=== PATIENT | female | born 1945 | race Caucasian/White ===

== ENCOUNTER 2017-09-07 08:18 | Outpatient (CLI) | payer MEDICARE, BC ==
--- NOTE | 2017-09-07 10:39 | CT ---
NONCONTRAST CT OF LUMBAR SPINE 09/07/2017 HISTORY: Low back pain with pain radiating down left leg. History of fall 2 weeks ago. History of low back surgery. TECHNIQUE: Contiguous axial CT images are obtained through the lumbar spine from the T12-L1 level to the upper sacrum. Sagittal and coronal reformatted images are provided. FINDINGS: There are laminectomy defects seen from the level of the L2 vertebral body to the L5 vertebral body. Multilevel degenerative changes are seen of the intervertebral disk spaces at all levels with asso ciated vacuum phenomenon in the intervertebral disks. No fracture or subluxation is seen. There is mild right convex scoliosis of the lumbar spine. L1-2 level: There is a broad-based disk osteophyte complex present. The uncinate process appears t o be on the right. There is only minimal narrowing of the central spinal canal. Left neural forame n is patent, and there is very mild right-sided neural foraminal narrowing. L2-3 level: There is a broad-based disk osteophyte complex with facet hypertrophic changes. Findin gs result in moderate left and mild right-sided neural foraminal narrowing. Laminectomy defect note d posteriorly. L3-4 level: There is a broad-based disk osteophyte complex with prominent facet hypertrophic change s. There is a laminectomy defect posteriorly, but there is bony overgrowth and there is resultant m ild to moderate narrowing of the central spinal canal. There is moderate to severe left-sided neura l foraminal narrowing. The right neural foramen appears patent. L4-5 level: There is a broad-based disk osteophyte complex. This results in mild left and severe r ight-sided neural foraminal narrowing. Prominence based on bony encroachment. There is mild efface ment of the lateral aspect of the thecal sac largely due to the prominent facet hypertrophic changes . Laminectomy defect seen posteriorly. L5-S1 level: There is a broad-based disk osteophyte complex present. There is mild bilateral neura l foraminal narrowing due to the posterior osteophyte formation and facet degenerative changes with moderate encroachment on each exiting nerve root due to lateral osteophytes. Central spinal canal a ppears patent. Extra calcification seen in the abdominal aorta and iliac arteries. IMPRESSION: 1. Laminectomy defects extending from L2 to L5. Multilevel degenerative changes are seen with varyi ng degrees of neural foraminal narrowing primarily related to the bony encroachment at multiple leve ls. 2. Right convex scoliosis of the lumbar spine. POS: [facility]
--- NOTE | 2017-09-07 11:53 | MRI ---
MRI OF THE LUMBAR SPINE WITH AND WITHOUT IV CONTRAST: Indication: History of fall two weeks ago with pain radiating down left leg and low back pain. Patie nt has a history of lumbar back surgery. FINDINGS: There is post-surgical change most consistent with laminectomies at L2-3, L3-4, L4-5 and L5-S1. Ther e is advanced multilevel Modic endplate degenerative changes seen involving the lumbar spine most pr onounced at L2-3 through L5-S1. The conus is seen to terminate at L1. Visualized retroperitoneum dem onstrate bilateral extrarenal pelves. No enlarged lymph nodes or free fluid is evident. There is a bony hemangioma within the left aspect of L2. At the L5-S1 level, there is a broad based disc bulge with a superimposed central disc protrusion. T he broad based disc bulge and protrusion cause mild narrowing of the subarticular later recesses sonia aterally without definite impingement of the traversing S1 nerve roots. The loss of disc space heigh t in addition to the facet hypertrophy does induce mild bilateral neural foraminal narrowing. At L4-5, there is an asymmetric to the right disc osteophyte complex. The degenerative changes of th e disc in addition to the facet hypertrophy induce severe right and mild left neural foraminal narro wing. At L3-4, There is an asymmetric to the left disc osteophyte complex. The disc osteophyte complex wit h facet hypertrophy at this level induces severe left and mild to moderate right neural foraminal na rrowing. At L2-3, there is a broad based disc osteophyte complex and facet hypertrophy inducing moderate to s evere left and mild right neural foraminal narrowing. At L1-2, there is a broad based disc osteophyte complex with facet hypertrophy inducing moderate sonia ateral neural foraminal narrowing. At T12-L1, there is a broad based bulge without appreciable central canal or neural foraminal narrow ing. There is no abnormal enhancement demonstrated. IMPRESSION: Multilevel prominent neural foraminal narrowing involving the lumbar spine. Mild bilateral lateral recess narrowing at L5-S1 due to broad based bulge and central protrusion wit h facet hypertrophy. There is no definite impingement of the traversing S1 nerve roots. POS: [facility]
[2017-09-07] MEDS ORDERED: Gadobenate Dimeglumine 529 MG/1 ML (20ML VIAL) ONE (16:06)
== END 2017-09-07 08:19 | disposition home or self-care (01) ==
LOC: TBSIIMAG 08:18
PROVIDERS: ATTEND Surgery
DX: M47.26 Other spondylosis with radiculopathy, lumbar region (principal); M41.9 Scoliosis, unspecified; M48.07 Spinal stenosis, lumbosacral region
CPT/HCPCS: 72131; 72158; A9579

== ENCOUNTER 2018-03-27 09:38 | Outpatient (CLI) | payer MEDICARE, BC ==
[2018-03-27 11:03] LABS: Hemoglobin 14.9 g/dL (12.0-16.0); Mean Corpuscular HGB CONC 33.1 g/dL (32.0-36.0); Mean Corpuscular Hemoglobin 32.1 pg (27.0-31.0); Mean Platelet Volume 6.9 fL (7.4-10.4); Platelet Count 270 thou/uL (130-400); RBC Distribution Width 11.8 % (11.5-14.5); Red Blood Cell (RBC) Count 4.64 mill/uL (4.20-5.40); White Blood Cell (WBC) Count 5.4 thou/uL (4.8-10.8)
[2018-03-27 11:15] LABS: PTT 28.9 SEC (22.9-36.1); Prothrombin Time 13.3 SEC (12.0-14.7)
[2018-03-27 11:22] LABS: Anion Gap 11 mmol/L (10-20); BUN (Urea Nitrogen) 10 mg/dL (9.8-20.1); Calc. Creatinine Clearance 0 mL/min (70-130); Calcium 9.9 mg/dL (7.8-10.44); Carbon Dioxide 29 mmol/L (23-31); Chloride 103 mmol/L (98-107); Estimated GFR-MDRD 72; Glucose 85 mg/dL (80-115); Potassium 3.8 mmol/L (3.5-5.1); Sodium 139 mmol/L (136-145)
--- NOTE | 2018-03-27 11:40 | EKG ---
Test Reason : Blood Pressure : / mmHG Vent. Rate : 060 BPM Atrial Rate : 060 BPM P-R Int : 136 ms QRS Dur : 100 ms QT Int : 432 ms P-R-T Axes : 053 010 032 degrees QTc Int : 432 ms Normal sinus rhythm Incomplete right bundle branch block Poor anterior R wave progression When compared with ECG of 17-OCT-2016 13:44, No significant change was found Confirmed by DR. Crys MCCOY ([id number]) on 03/27/2018 11:40:16 AM Referred By: SABRINA Confirmed By:DR. Crys MCCOY
== END 2018-03-27 09:39 | disposition home or self-care (01) ==
LOC: LABBT 09:38
PROVIDERS: ATTEND Surgery
DX: Z01.818 Encounter for other preprocedural examination (principal); M51.16 Intervertebral disc disorders with radiculopathy, lumbar region; M48.061 Spinal stenosis, lumbar region without neurogenic claudication
CPT/HCPCS: 80048; 85027; 85610; 85730; 93005; 93010

== ENCOUNTER 2018-04-04 09:33 | Day surgery (SDC) | payer MEDICARE, BC ==
[2018-04-04] MEDS ORDERED: CEFAZOLIN/Water 2 GM/20 ML SYRINGE ONE (11:38)
[2018-04-04] MEDS ORDERED: Bacitracin Zinc Ointment 30 gm TUBE ONE (13:45)
[2018-04-04] MEDS ORDERED: Sodium Chloride 0.9% 10 ML ONE (13:45)
[2018-04-04] MEDS ORDERED: Thrombin 5000 UNITS/5 ML VIAL ONE (13:45)
[2018-04-04] MEDS ORDERED: Ondansetron HCl/PF 4 MG/2 ML Vial ONE ×2 (13:46→14:23)
[2018-04-04] MEDS ORDERED: Fentanyl 100 MCG/2 ML VIAL ONE ×2 (13:46→17:07)
[2018-04-04] MEDS ORDERED: PROPOFOL 200 MG/20 ML VIAL ONE (14:23)
[2018-04-04] MEDS ORDERED: Lidocaine 1% PF 5 ML VIAL ONE (14:23)
[2018-04-04] MEDS ORDERED: PHENYLEPHRINE-NS 100 MCG/ML 10 ML SYRINGE ONE (14:23)
[2018-04-04] MEDS ORDERED: ePHEDrine/0.9% NaCl/PF SYRINGE 50 mg/10 ml ONE (14:23)
[2018-04-04] MEDS ORDERED: Glycopyrrolate 0.2 MG/ML 5 ML SYRINGE ONE (14:23)
[2018-04-04] MEDS ORDERED: Dexamethasone 20 MG/5 ML VIAL ONE (14:23)
[2018-04-04] MEDS ORDERED: Meperidine HCl/PF 25 MG/ML VIAL SLOW IVP PRN (15:51)
[2018-04-04] MEDS ORDERED: Promethazine HCl 25 MG/ML VIAL SLOW IVP PRN (15:51)
[2018-04-04] MEDS ORDERED: Ondansetron HCl/PF 4 MG/2 ML Vial IVP PRN (15:51)
[2018-04-04] MEDS ORDERED: Promethazine HCl 25 MG/ML VIAL IM PRN ×2 (15:51→16:44)
[2018-04-04] MEDS ORDERED: Milk Of Magnesia 30 ML UDCUP PO PRN (16:44)
[2018-04-04] MEDS ORDERED: Morphine 4 MG/ML VIAL SLOW IVP PRN (16:44)
[2018-04-04] MEDS ORDERED: Bisacodyl 10 MG SUPP PR PRN (16:44)
[2018-04-04] MEDS ORDERED: Acetaminophen 325 MG TAB PO PRN (16:44)
[2018-04-04] MEDS ORDERED: Fleet Enema 133 ML BOT PR PRN (16:44)
[2018-04-04] MEDS ORDERED: Mag-Al 1200 mg/1200 mg/30 ML UDCUP PO PRN (16:44)
[2018-04-04] MEDS: Acetaminophen/Codeine 30-300mg Tablet PO PRN (18:25)
[2018-04-04] MEDS: HYDROcodone/Acetaminophen 7.5/325 mg Tablet PO PRN ×2 (19:30→23:33)
[2018-04-04] MEDS: tiZANidine HCl 4 MG TAB PO PRN (19:31)
[2018-04-04] MEDS: Sodium Chloride 0.9% 1,000 ML IV SCH (19:41)
[2018-04-04] MEDS: CEFAZOLIN/Water 2 GM/20 ML SYRINGE SLOW IVP SCH (20:36)
[2018-04-04 21:08] VITALS: BMI 36.1
[2018-04-05] MEDS: tiZANidine HCl 4 MG TAB PO PRN ×2 (01:48→18:22)
[2018-04-05] MEDS: HYDROcodone/Acetaminophen 7.5/325 mg Tablet PO PRN ×3 (03:39→22:29)
[2018-04-05] MEDS: CEFAZOLIN/Water 2 GM/20 ML SYRINGE SLOW IVP SCH (03:40)
[2018-04-05] MEDS: Sodium Chloride 0.9% 1,000 ML IV SCH ×3 (05:40→22:27)
[2018-04-05] MEDS: Acetaminophen/Codeine 30-300mg Tablet PO PRN ×2 (06:16→09:05)
[2018-04-05] MEDS: Atorvastatin Calcium 40 MG TAB PO SCH (09:05)
[2018-04-05] MEDS: DULoxetine 60 MG CAP PO SCH (09:09)
[2018-04-05] MEDS: traMADol HCl 50 MG TAB PO PRN (13:16)
--- NOTE | 2018-04-05 13:37 | PRG ---
DATE OF SERVICE: 04/05/2018 Kenney Hoffman PA-C dictating for Dr. Uche Trejo. SUBJECTIVE: Ms. Bower is now postoperative day #1 having undergone a revision left L3-4 foraminoto my. The patient did have a dural laceration that was repaired with the DuraSeal. Unfortunately, the patient complains of postural headache today. She does have some perineal spasm, but otherwise has no bilateral lower extremity complaints and states that she has mild incisional pain. OBJECTIVE: She has good strength in the bilateral lower extremities with intact sensation to light t ouch throughout. Her incision is dressed and when uncovered, there is no drainage on the dressing an d there is no active drainage indicative of an active CSF leak. PLAN: Keep her flat at this time and we will reassess in the next several hours. More than likely t susana if her headache does not improve, we will keep her overnight and reassess in the morning. Plea se call with any questions or changes in patient's neurologic status.
[2018-04-06] MEDS: tiZANidine HCl 4 MG TAB PO PRN ×2 (00:42→07:24)
[2018-04-06] MEDS: HYDROcodone/Acetaminophen 7.5/325 mg Tablet PO PRN ×3 (02:36→11:30)
[2018-04-06] MEDS: Sodium Chloride 0.9% 1,000 ML IV SCH (07:03)
[2018-04-06 07:26] VITALS: TEMP 98.4
[2018-04-06] MEDS: Atorvastatin Calcium 40 MG TAB PO SCH (09:31)
[2018-04-06] MEDS: DULoxetine 60 MG CAP PO SCH (09:31)
[2018-04-06] MEDS: traMADol HCl 50 MG TAB PO PRN (09:31)
[2018-04-06 13:57] VITALS: BP 124/68
--- NOTE | 2018-04-07 22:47 | OP ---
DATE OF SURGERY: 04/04/2018 SURGEON: Uche Trejo M.D. DENTAL FRONT OFFICE ASSISTANT: Kenney Hoffman PA-C. PREPROCEDURE DIAGNOSES: Left L3 radiculopathy with a history of multilevel lumbar laminectomy, recur rent lumbar stenosis, and with low back and left leg pain. POSTPROCEDURE DIAGNOSES: Left L3 radiculopathy with a history of multilevel lumbar laminectomy, recu rrent lumbar stenosis, and with low back and left leg pain. PROCEDURE: Revision left L3-L4 hemilaminotomy, foraminotomy for decompression of the exiting left L3 , left L4 nerve root and assessment for need for diskectomy. DESCRIPTION OF PROCEDURE: After informed consent was obtained from the patient, the patient brought to OR. Proper patient pause and identification was carried out. She was placed in excellent general endotracheal anesthesia and positions prone on the operating table following excellent anesthetic in duction. All appropriate points were padded. The midline prior lumbar wound was identified and the L3-L4 incision component of this was identified in the midline lumbar spine and drawn out this region sterilely cleansed, prepared, and draped. Proper patient pause that this was carried out. The woun d was then opened in combination of sharp, monopolar, and blunt dissection. The left L3-L4 facet and hemilamina region was identified prior exuberant scar was identified in the left L3 and left L4 segm ent. This region was sterilely cleansed, prepared, and draped, proper patient pause and identificati on was again carried out. We then identified as we proceeded in this region and decompress the exiti ng left L3 nerve root, significant osteophytic overgrowth in the left L3-L4 facet in particular osteo phytes impinging encroaches significantly to the action of left L3 and even the traversing left L4 ne rve root. The dura was quite thin as a result of this and CSF leak was encountered. This was repair ed, but I ensured excellent freedom of the action of left L3 and traversing left L4 nerve roots by ca refully dissecting this region. Following copious irrigation maximizing hemostasis, we assured freed om of the exiting left L3 and left L4 nerve root, slightly exuberant scar tissue. Again, I was very satisfied this. I assured no more CSF leak. A small amount of DuraSeal was placed as was a Valsalva maneuver. Vancomycin powder was then placed in the wound. The wound was copiously irrigated throug hout and closed in anatomic layers. The patient then emerged from anesthesia.
== END 2018-04-06 13:58 | disposition home or self-care (01) ==
LOC: SDC 09:33 → SURG B 16:44 → SDC 04-06 13:58
PROVIDERS: ATTEND Surgery
PROC: 00NY0ZZ Release Lumbar Spinal Cord, Open Approach (ICD-10-PCS; principal; 2018-04-04)
DX: M48.062 Spinal stenosis, lumbar region with neurogenic claudication (principal); M51.26 Other intervertebral disc displacement, lumbar region; M54.16 Radiculopathy, lumbar region; Z91.048 Other nonmedicinal substance allergy status
CPT/HCPCS: 76001; 96374; A4216; J1100; J2001; J2405; J2704; J3010; J3370; J3490

== ENCOUNTER 2019-07-17 09:36 | Observation (INO) | payer MEDICARE, BC ==
--- NOTE | 2019-07-17 10:57 | CT ---
CT BRAIN WITHOUT CONTRAST: Date: 07/17/19 HISTORY: Fall, no loss of consciousness. FINDINGS: No evidence of infarct, hemorrhage, midline shift, or abnormal extra-axial fluid collections are seen . The ventricular size is appropriate and the basilar cisterns are patent. The bony calvarium is inta ct. The visualized paranasal sinuses and mastoid air cells are well aerated. IMPRESSION: No CT evidence of acute intracranial process. POS: [facility]
[2019-07-17] MEDS ORDERED: Metoprolol Tartrate 5 MG/5 ML VIAL ONE ×2 (10:58→12:22)
[2019-07-17 11:06] LABS: #Eosinphils 0.2 thou/uL (0.0-0.7); #Lymphocytes 1.9 thou/uL (1.20-3.40); #Monocytes 0.7 thou/uL (0.11-0.59); #Neutrophils 3.5 thou/uL (1.40-6.50); %Basophils 0.4 % (0.0-1.0); %Eosinophils 2.6 % (0.0-10.0); %Monocytes 10.9 % (0.0-10.0); %Neutrophils 56.1 % (42.0-75.0); Hemoglobin 16.2 g/dL (12.0-16.0); Mean Corpuscular HGB CONC 34.1 g/dL (32.0-36.0); Mean Corpuscular Hemoglobin 32.6 pg (27.0-31.0); Mean Corpuscular Volume 95.7 fL (78.0-98.0); Mean Platelet Volume 7.8 fL (7.4-10.4); Platelet Count 248 thou/uL (130-400); RBC Distribution Width 12.1 % (11.5-14.5); Red Blood Cell (RBC) Count 4.95 mill/uL (4.20-5.40); White Blood Cell (WBC) Count 6.2 thou/uL (4.8-10.8)
--- NOTE | 2019-07-17 11:13 | RAD ---
RADIOGRAPH CHEST 1 VIEW: DATE: 07/17/2019. TIME: 10:13 a.m. HISTORY: A 74-year-old female status post acute chest trauma from fall. FINDINGS: There is no air space density, pulmonary edema, or pneumothorax. The lateral costophrenic angles are sharp. IMPRESSION: No acute pulmonary findings. jn [] POS: [facility]
--- NOTE | 2019-07-17 11:20 | RAD ---
FOUR VIEWS RIGHT ELBOW: HISTORY: Right mid humerus and elbow pain. FINDINGS: No fracture or dislocation is seen. There are mild degenerative changes about the right elbow. No o ther osseous abnormality. IMPRESSION: No acute osseous abnormality involving the right elbow. POS: [facility]
--- NOTE | 2019-07-17 11:21 | RAD ---
TWO VIEWS RIGHT HUMERUS: HISTORY: Right mid humerus and elbow pain. FINDINGS: No fracture or dislocation is seen on the provided images. There does appear to be mild narrowing of the subacromial space. IMPRESSION: No acute osseous abnormality. POS: [facility]
[2019-07-17 12:10] LABS: ALT (SGPT) 15 U/L (8-55); AST (SGOT) 23 U/L (5-34); Albumin 4.7 g/dL (3.4-4.8); Alkaline Phosphatase 109 U/L (40-150); Anion Gap 17 mmol/L (10-20); BUN (Urea Nitrogen) 13 mg/dL (9.8-20.1); Bilirubin, Total 0.7 mg/dL (0.2-1.2); CK (CPK) 63 U/L (29-168); Calc. Creatinine Clearance 0 mL/min (70-130); Calcium 10.3 mg/dL (7.8-10.44); Carbon Dioxide 23 mmol/L (23-31); Chloride 104 mmol/L (98-107); Estimated GFR-MDRD 68; Glucose 96 mg/dL (83-110); Lipase 65 U/L (8-78); Potassium 4.5 mmol/L (3.5-5.1); Protein, Total 7.7 g/dL (6.0-8.3); Sodium 139 mmol/L (136-145)
[2019-07-17] MEDS ORDERED: Magnesium 2 GM/50 ML BAG (IN WATER) ONE (12:22)
--- NOTE | 2019-07-17 14:47 | CT ---
CT ARTERIOGRAM CHEST WITH IV CONTRAST AND 3D IMAGING: HISTORY: Dyspnea. Tachycardia. Elevated D-Dimer. FINDINGS: No comparison. There is good contrast opacification of the pulmonary arteries. Contrast has not yet reached the aort a at time of imaging. Bovine origin of the great vessels at the aortic arch. Mild pulmonary hyperinflation with scattered mild subsegmental peripheral atelectasis. Nonspecific, n oncalcified subpleural 5 mm nodule at the left posterior lung base. Calcified granulomata of the johana d organs of the upper abdomen consistent with healed granulomatous disease. IMPRESSION: 1. No CT evidence of pulmonary embolus. 2. Emphysema. POS: [facility]
[2019-07-17] MEDS ORDERED: traMADol HCl 50 MG TAB PO PRN (15:05)
[2019-07-17] MEDS ORDERED: Nitroglycerin 0.4 MG TAB (25 Tab Bottle) PO PRN (15:07)
[2019-07-17] MEDS ORDERED: ISOVUE-370 76%-LOCM 1 ML ONE (16:16)
[2019-07-17 17:13] LABS: Troponin I Less than 0.010 ng/mL (< 0.028)
--- NOTE | 2019-07-17 18:57 | HP ---
CHIEF COMPLAINT: Status post fall. HISTORY OF PRESENT ILLNESS: This is a 74-year-old female patient with past medical history significant for arthritis, no other cardiac history, apparently was visiting her who is about to be discharged from the hospital today, went to cafeteria, had a fall and sustained small abrasions, but she was brought down to ER, found to be in on and off atrial fibrillation versus sinus tachycardia. ER evaluated the patient and determined to hospitalize the patient, and Cardiology consult was obtained as well. Currently, the patient has been in normal sinus rhythm and does not have any symptoms. PAST MEDICAL HISTORY: Arthritis. HOME MEDICATIONS: Reviewed includin. Tylenol. 2. Ativan 0.5 mg b.i.d. p.r.n. 3. Hydrocodone 5 mg q.6 hours p.r.n. 4. Atorvastatin 40 mg p.o. daily. 5. Duloxetine 60 mg p.o. daily. 6. Tizanidine 4 mg daily. REVIEW OF SYSTEMS: CONSTITUTIONAL: No fever. No chills. HEENT: Reviewed and negative. CARDIOVASCULAR: As above. Palpitations occasionally. PULMONARY: No cough. No dyspnea. GI: Reviewed and negative. NEUROLOGIC: Reviewed and negative. All the other systems were reviewed and negative. ALLERGIES: NKDA. CODE STATUS: Full code. SOCIAL HISTORY: Does not drink alcohol or smoke. Retired, in [place], used to work in [place]. FAMILY HISTORY: Nothing contributory. No significant family history of diabetes, hypertension, or heart disease. PHYSICAL EXAMINATION: GENERAL: The patient is alert and oriented x3, not in acute distress. VITAL SIGNS: Reviewed and stable. Afebrile. HEENT: NOMI. Atraumatic and normocephalic. Dry mucous membranes. NECK: Supple without any JVD. LUNGS: Clear to auscultation bilaterally. CVS: S1 and S2 heard. ABDOMEN: Soft. Bowel sounds present. Nontender and nondistended. EXTREMITIES: No cyanosis, calf tenderness, or edema. ACCOUNT SERVICE REPRESENTATIVE: Nonfocal. LABORATORY WORK: Reviewed. WBC 6.2, hemoglobin 16.2, hematocrit 47.4, platelets 248. Chemistry shows sodium 139, potassium 4.5, chloride 104, carbon dioxide 23, anion gap 17, BUN 13, creatinine 0.83. BNP is 255, slightly elevated. Troponin within normal limits at 0.010. EKG, normal sinus rhythm. Earlier EKG shows possible sinus tachycardia ranging anywhere from 110 to 160. Currently, normal sinus rhythm. Chest x-ray report, pending. IMPRESSION: Status post tripped and fall, unrelated to cardiac history, possible paroxysmal atrial fibrillation, rule out sick sinus syndrome. PLAN: 1. The patient will be placed in telemetry under chest pain protocol, and serial cardiac enzymes will be obtained. EKG will be obtained. Cardiology consult will be obtained. 2. Echocardiogram will be ordered. 3. We will continue home medications. 4. The patient will be placed on DVT prophylaxis. 5. The patient is counselled to take her home medications, and we will restart all the home medications including statins. 6. Further recommendations pending Cardiology consult. Job ID: [id number]
[2019-07-17 20:25] LABS: Troponin I Less than 0.010 ng/mL (< 0.028)
[2019-07-17] MEDS: Metoprolol Tartrate 25 MG TAB PO SCH (21:16)
[2019-07-17 21:39] VITALS: BMI 35.1
[2019-07-18 05:52] LABS: Cardiac Risk 2.5 (Less than 4.5)
[2019-07-18] MEDS: Metoprolol Tartrate 25 MG TAB PO SCH (08:49)
[2019-07-18] MEDS ORDERED: Atorvastatin Calcium 40 MG TAB PO SCH (09:00)
[2019-07-18] MEDS ORDERED: Enoxaparin Sodium 30 MG/0.3 ML SYRINGE SC SCH (09:00)
[2019-07-18] MEDS ORDERED: Aspirin 325 mg Enteric Coated Tablet PO SCH (09:00)
[2019-07-18 11:49] VITALS: TEMP 98.6
--- NOTE | 2019-07-18 13:33 | PDOC.HOSPP ---
- Subjective Encounter Date: 07/18/19 Encounter Time: 13:32 Subjective: Patient seen and examined. No new complaints. No overnight events - Objective Vital Signs & Weight: Vital Signs (12 hours) Temp Pulse Resp BP BP Pulse Ox 07/18/19 11:00 98.6 F 59 L 18 125/71 98 07/18/19 08:00 98.1 F 71 18 120/61 98 07/18/19 07:51 98.1 F 71 18 120/61 99 07/18/19 02:54 98 F 69 19 113/57 L 93 L Weight Weight 230 lb 12.8 oz I&O: 07/17/19 07/18/19 07/19/19 06:59 06:59 06:59 Intake Total 240 Output Total 900 Balance -660 Result Diagrams: 07/17/19 10:52 07/17/19 10:52 ROS - Medication Medications: Active Medications Generic Name Dose Route Start Last Admin Trade Name Freq PRN Reason Stop Dose Admin Aspirin 325 mg 07/18/19 09:00 07/18/19 08:49 Ecotrin PO 325 mg DAILY RODRÍGUEZ Administration Atorvastatin Calcium 40 mg 07/18/19 09:00 07/18/19 08:49 Lipitor PO 40 mg DAILY RODRÍGUEZ Administration Enoxaparin Sodium 30 mg 07/18/19 09:00 07/18/19 08:50 Lovenox SC 30 mg 0900 RODRÍGUEZ Administration Metoprolol Tartrate 12.5 mg 07/17/19 21:00 07/18/19 08:49 Lopressor PO 12.5 mg BID RODRÍGUEZ Administration - Exam NAD, awake alert, ill appearing Eye: PERRL, anicteric sclera, scleral icterus ENT: normocephalic atraumatic, no oropharyngeal lesions, moist mucosa, dry oral mucosa Neck: supple, symmetric, no JVD, no thyromegaly, no lymphadenopathy, no carotid bruit, JVD Respiratory: CTAB, no wheezes, no rales, no ronchi, normal chest expansion, no tachypnea, normal percussion, rales, rhonchi, tachypneic, wheezes Gastrointestinal: soft, non-tender, non-distended, normal bowel sounds, no palpable masses, no hepatomegaly, no splenomegaly, no bruit, no guarding, no rigidity, tender to palpation, distended, diminished bowl sounds, voluntary guarding Hosp A/P (1) Sinus tachycardia Code(s): R00.0 - TACHYCARDIA, UNSPECIFIED Status: Acute - Plan old records reviewed/req (Await @D echo to determin the LVH and cardiology consult pending for evaluation of possible sick sinus synderome)
[2019-07-18 16:17] VITALS: BP 126/72
[2019-07-18] MEDS ORDERED: Digoxin 0.25 MG TAB PO SCH (16:45)
--- NOTE | 2019-07-18 17:09 | CON ---
DATE OF CONSULTATION: REASON FOR CONSULTATION: Dysrhythmia. HISTORY OF PRESENT ILLNESS: Ms. Bower is a 74-year-old woman, who recently was visiting her . She tripped and fell while walking to the cafeteria. She was found to have a brief dysrhythmia. She was found to have intermittent episodes of SVT. She does admit to having intermittent palpitations at home. No syncope, presyncope, dizziness, or lightheadedness. Her most recent echo suggested normal LVEF. PAST MEDICAL HISTORY: Arthritis. HOME MEDICATIONS: Include, 1. Hydrocodone. 2. Atorvastatin. 3. Ativan. 4. Tylenol. 5. Tizanidine. ALLERGIES: NONE. REVIEW OF SYSTEMS: A 10-point review of systems is reviewed and as above, otherwise negative. SOCIAL HISTORY: No current tobacco or alcohol use. PHYSICAL EXAMINATION: GENERAL: Patient is a pleasant woman, who is in no acute distress. The patient appears their stated age. VITAL SIGNS: Blood pressure 120/61, pulse 71, and temperature 98.1. NEUROLOGIC: The patient is alert and oriented x3 with no focal neurologic deficits. HEENT: Sclerae without icterus. Mouth has moist mucous membranes with normal pallor. NECK: No JVD. Carotid upstroke brisk. No bruits bilaterally. LUNGS: Clear to auscultation with unlabored respirations. BACK: No scoliosis or kyphosis. CARDIAC: Regular rate and rhythm with normal S1 and S2. No S3 or S4 noted. No significant rubs, murmurs, thrills, or gallops noted throughout the precordium. PMI is not displaced. There is no parasternal heave. ABDOMEN: Soft, nontender, nondistended. No peritoneal signs present. No hepatosplenomegaly. No abnormal striae. EXTREMITIES: 2+ femoral and 2+ dorsalis pedis pulses. No cyanosis, clubbing, or edema. SKIN: No gross abnormalities. DIAGNOSTIC DATA: Echo with doppler showed normal LVEF. Telemetry monitoring does show brief episodes of SVT. IMPRESSION: Supraventricular tachycardia. RECOMMENDATIONS: Ms. Bower' only symptoms are palpitations. At this point, I recommend digoxin 0.25 one p.o. q.6 hours x4 and then 0.125 mg one p.o. q.a.m. Given her normal LVEF with no syncope or presyncope, it would be okay from my standpoint to discharge home. We will follow up as an outpatient. Job ID: [id number]
--- NOTE | 2019-07-19 05:57 | DIS ---
DATE OF ADMISSION: 07/17/2019 DATE OF DISCHARGE: 07/18/2019 DISCHARGE DIAGNOSIS: Sinus tachycardia, status post fall, resolved. CONSULTANTS ON THE CASE: [facility]. HOSPITAL COURSE: The patient had been admitted for sinus tachycardia after she had a fall in the hospital when she was visiting her . Serial cardiac enzymes were obtained, within normal limits. CT scan of the brain was obtained, within normal limits. Chest CT was obtained in the emergency room, which was no CT evidence of pulmonary embolus. A cardiology consultation was obtained. 2D echocardiogram was ordered, which was pending. Cardiology evaluated the patient and recommended to transfer the patient to outpatient care to follow up with him in his office. DISCHARGE INSTRUCTION: Discharge the patient to outpatient care to follow up with Cardiology. DISCHARGE MEDICATIONS: Please see reconciliation sheet. CONDITION OF THE PATIENT AT THE TIME OF DISCHARGE: Stable, afebrile. FOLLOWUP CARE: Follow up with PCP in 1 week, follow up with Cardiology in 2 days. Job ID: [id number]
--- NOTE | 2019-07-19 13:41 | EKG ---
Test Reason : Blood Pressure : / mmHG Vent. Rate : 168 BPM Atrial Rate : 197 BPM P-R Int : 000 ms QRS Dur : 078 ms QT Int : 228 ms P-R-T Axes : 000 -20 164 degrees QTc Int : 381 ms Atrial fibrillation with rapid ventricular response Minimal voltage criteria for LVH, may be normal variant Anterior infarct , age undetermined Abnormal ECG #2 Confirmed by ALBERT REAVES, EZEQUIEL (12), editor & co founder CARIE BHAT ([id number]) on 07/19/2019 1:41:32 PM Referred By: Confirmed By:EZEQUIEL PRICE MD
--- NOTE | 2019-07-19 13:41 | EKG ---
Test Reason : Blood Pressure : / mmHG Vent. Rate : 093 BPM Atrial Rate : 079 BPM P-R Int : 160 ms QRS Dur : 086 ms QT Int : 330 ms P-R-T Axes : 036 -31 029 degrees QTc Int : 410 ms Sinus rhythm with Premature supraventricular complexes Left axis deviation Minimal voltage criteria for LVH, may be normal variant Anterior infarct , age undetermined Abnormal ECG #1 Confirmed by ALBERT REAVES, EZEQUIEL (12), managing editor CARIE BHAT ([id number]) on 07/19/2019 1:41:21 PM Referred By: Confirmed By:EZEQUIEL PRICE MD
--- NOTE | 2019-07-19 13:42 | EKG ---
Test Reason : Blood Pressure : / mmHG Vent. Rate : 062 BPM Atrial Rate : 062 BPM P-R Int : 154 ms QRS Dur : 090 ms QT Int : 382 ms P-R-T Axes : 032 -28 031 degrees QTc Int : 387 ms Normal sinus rhythm Possible Left atrial enlargement Left ventricular hypertrophy Abnormal ECG #3 Confirmed by ALBERT REAVES, EZEQUIEL (12), editor managing director CARIE BHAT ([id number]) on 07/19/2019 1:42:09 PM Referred By: Confirmed By:EZEQUIEL PRICE MD
[2019-07-20] MEDS ORDERED: Digoxin 0.125 MG TAB PO SCH (09:00)
== END 2019-07-18 18:25 | disposition home or self-care (01) ==
LOC: ERS 09:36 → ERHOLD 15:28 → INTOOBSV 15:28 → 2NO 20:39
PROVIDERS: ADMIT Internal Medicine; ATTEND Internal Medicine
DX: I47.1 Supraventricular tachycardia (principal); M19.90 Unspecified osteoarthritis, unspecified site; I48.91 Unspecified atrial fibrillation; J43.9 Emphysema, unspecified; R91.1 Solitary pulmonary nodule; I10 Essential (primary) hypertension; Z79.899 Other long term (current) drug therapy; Z91.048 Other nonmedicinal substance allergy status; Z91.09 Other allergy status, other than to drugs and biological substances; W01.0XXA Fall on same level from slipping, tripping and stumbling without subsequent striking against object, initial encounter; Y92.239 Unspecified place in hospital as the place of occurrence of the external cause
CPT/HCPCS: 70450; 71045; 71275; 73060; 73080; 80053; 80061; 82140; 82550; 83690; 83880; 84146; 84484 ×2; 85025; 85379; 93005; 93306; 94760 ×2; 96361; 96365; 96372; 96375; 96376; 97139 ×2; 99285; G0378 ×3; 36415; J1650; J3475; Q9966

== ENCOUNTER 2019-08-02 15:44 | Inpatient (IN) | payer MEDICARE, BC ==
[2019-08-02] MEDS ORDERED: HYDROcodone/Acetaminophen 7.5/325 mg Tablet PO PRN (17:19)
[2019-08-02] MEDS ORDERED: Acetaminophen 325 MG TAB PO PRN (17:19)
[2019-08-02] MEDS ORDERED: Ondansetron PF 4 MG/2 ML Vial IVP PRN (17:19)
[2019-08-02] MEDS ORDERED: Ondansetron ODT 4 MG TAB PO PRN (17:19)
[2019-08-02] MEDS ORDERED: HYDROcodone/Acetaminophen 5/325 mg Tablet PO PRN (17:19)
[2019-08-02] MEDS ORDERED: diphenhydrAMINE 25 MG CAP PO PRN (17:22)
[2019-08-02] MEDS ORDERED: hydrALAZINE 20 MG/ML VIAL SLOW IVP PRN (17:22)
[2019-08-02] MEDS ORDERED: Docusate 100 MG CAP PO PRN (17:22)
[2019-08-02] MEDS ORDERED: Acetaminophen 500 MG TAB ONE (17:35)
[2019-08-02] MEDS ORDERED: Heparin 25,000 units/D5W 500 ML IVPB SCH (17:45)
[2019-08-02 17:51] LABS: Hemoglobin 13.4 g/dL (12.0-16.0); Mean Corpuscular HGB CONC 33.5 g/dL (32.0-36.0); Mean Corpuscular Hemoglobin 32.4 pg (27.0-31.0); Mean Corpuscular Volume 96.6 fL (78.0-98.0); Mean Platelet Volume 7.4 fL (7.4-10.4); Platelet Count 242 thou/uL (130-400); RBC Distribution Width 11.8 % (11.5-14.5); Red Blood Cell (RBC) Count 4.13 mill/uL (4.20-5.40); White Blood Cell (WBC) Count 4.6 thou/uL (4.8-10.8)
--- NOTE | 2019-08-02 17:57 | PDOC.HHP ---
Hospitalist HPI - History of Present Illness Afib, palpitations History of Present Illness: 74 year old female who is currently on holter monitor per Dr Becker presents with atrial fibrillation with rapid ventricular response. Patient was recently at [facility] with concern for arrhythmia was set up with outpatient holter monitor. Patient has communicated with Dr Ramos at home who states there was some changes to the rhythm and that if symptoms persist she may need to come into the hospital sooner than her sunday appointment. Patient initially presented to [place] and was transferred for high level of care. Upon arrival to [place] was in Afib with RVR per report and transferred to [facility]. I find the patient in the ED, she is sitting upright in bed. Currently in sinus rhythm with ventricular rate of 60bpm. No longer having palpitations, shortness of breath, or light headedness as before. When if comes on patient describes as an electric shock going through her body and she feels like she is in a dream. Admitted to medical unit with telemetry for further eval. Cardiology consulted. Hospitalist ROS - Review of Systems All other systems reviewed; all pertinent +/- noted in HPI/Subj Hospitalist History - Past Medical History Source: patient Cardiac: reports: AFIB, HTN Pulmonary: denies: CVA/TIA/stroke, COPD [employer]: denies: CVA, Dementia, Seizure, TIA Gastrointestinal: denies: GERD, GI bleed Heme/Onc: denies: Cancer Hepatobiliary: denies: Hep A/B/C Psych: reports: Depression. denies: Psychosis, Schizophrenia Rheumatologic: denies: Rheumatoid arthritis Infectious Disease: denies: HIV Renal/: denies: Chronic renal failure Endocrine: denies: Diabetes - Social History Smoking Status: Never smoker Alcohol: reports: Rare Drugs: reports: none Living Situation: With Family Domestic Violence: Negative Other Social History: Patient is a full code. - Exam General Appearance: NAD Eye: PERRL, anicteric sclera ENT: no oropharyngeal lesions, moist mucosa Neck: supple, symmetric Heart: no murmur, no gallops, no rubs Heart - other findings: S1 and S2 currently sinus rhythm with rate of 60bpm Respiratory: CTAB, no wheezes, no rales, no ronchi Gastrointestinal: soft, non-tender, non-distended, no palpable masses, no guarding, no rigidity Extremities: no edema Skin: no lesions, no rashes Neurological: CN's grossly intact, no focal deficits, no new deficit Musculoskeletal: normal strength Psychiatric: normal affect, A&O x 3 Hospitalist Results - Labs Lab results: Troponin I Less than 0.010 ng/mL (< 0.028) 08/02/19 16:08 Hospitalist H&P A/P - Problem (1) Paroxysmal A-fib Code(s): I48.0 - PAROXYSMAL ATRIAL FIBRILLATION Status: Acute (2) Shortness of breath Code(s): R06.02 - SHORTNESS OF BREATH Status: Acute (3) Palpitations Code(s): R00.2 - PALPITATIONS Status: Acute (4) Depression Code(s): F32.9 - MAJOR DEPRESSIVE DISORDER, SINGLE EPISODE, UNSPECIFIED Status : Acute - Plan Plan: Plan: Admit to Medical unit with telemetry Cardiology consult, recommendations appreciated IV amiodarone IV heparin Continue home medications as able Currently no chest pain, shortness of breath, or other acute complaints Replace electrolytes as needed GI and DVT PPX
[2019-08-02 18:14] LABS: Anion Gap 10 mmol/L (10-20); BUN (Urea Nitrogen) 10 mg/dL (9.8-20.1); Calc. Creatinine Clearance 0 mL/min (70-130); Calcium 9.7 mg/dL (7.8-10.44); Carbon Dioxide 27 mmol/L (23-31); Chloride 107 mmol/L (98-107); Estimated GFR-MDRD 78; Glucose 99 mg/dL (83-110); Sodium 140 mmol/L (136-145)
[2019-08-02 18:26] VITALS: BMI 35.4
[2019-08-02 20:09] LABS: ALT (SGPT) 13 U/L (8-55); AST (SGOT) 15 U/L (5-34); Albumin 4.2 g/dL (3.4-4.8); Alkaline Phosphatase 98 U/L (40-150); Bilirubin, Direct 0.2 mg/dL (0.1-0.3); Bilirubin, Total 0.5 mg/dL (0.2-1.2); Protein, Total 6.8 g/dL (6.0-8.3)
[2019-08-02] MEDS: Heparin 10,000 UNITS/ 10 ML VIAL SLOW IVP SCH (20:37)
[2019-08-02] MEDS: Amiodarone 450 MG in Dextrose 5% in Water 250 ML IVPB SCH (21:06)
[2019-08-03] MEDS ORDERED: hydrALAZINE 20 MG/ML VIAL SLOW IVP PRN (04:29)
[2019-08-03] MEDS: Amiodarone 450 MG in Dextrose 5% in Water 250 ML IVPB SCH ×2 (04:33→12:06)
[2019-08-03 05:44] LABS: #Eosinphils 0.2 thou/uL (0.0-0.7); #Lymphocytes 1.8 thou/uL (1.20-3.40); #Monocytes 0.5 thou/uL (0.11-0.59); #Neutrophils 2.5 thou/uL (1.40-6.50); %Basophils 0.6 % (0.0-1.0); %Lymphocytes 34.7 % (21.0-51.0); %Monocytes 9.8 % (0.0-10.0); %Neutrophils 49.9 % (42.0-75.0); Hemoglobin 13.1 g/dL (12.0-16.0); Mean Platelet Volume 8.1 fL (7.4-10.4); Platelet Count 242 thou/uL (130-400); Red Blood Cell (RBC) Count 3.96 mill/uL (4.20-5.40)
[2019-08-03] MEDS: Heparin 10,000 UNITS/ 10 ML VIAL SLOW IVP SCH (06:07)
[2019-08-03 06:09] LABS: Anion Gap 11 mmol/L (10-20); BUN (Urea Nitrogen) 11 mg/dL (9.8-20.1); Calc. Creatinine Clearance 112 mL/min (70-130); Calcium 9.4 mg/dL (7.8-10.44); Carbon Dioxide 26 mmol/L (23-31); Chloride 108 mmol/L (98-107); Estimated GFR-MDRD 75; Glucose 106 mg/dL (83-110); Potassium 3.6 mmol/L (3.5-5.1); Sodium 141 mmol/L (136-145)
[2019-08-03] MEDS: DULoxetine 60 MG CAP PO SCH (08:42)
[2019-08-03] MEDS ORDERED: Digoxin 0.125 MG TAB PO SCH (09:00)
[2019-08-03] MEDS ORDERED: Carvedilol 3.125 MG TAB PO SCH (09:00)
[2019-08-03] MEDS ORDERED: Amiodarone 200 MG TAB PO SCH ×3 (11:09→15:00)
[2019-08-03] MEDS ORDERED: Amiodarone 450 MG in Dextrose 5% in Water 250 ML IVPB SCH (11:11)
--- NOTE | 2019-08-03 11:46 | PDOC.HOSPP ---
- Subjective Subjective: Seen and examined. No further episodes overnight on Amiodarone and Heparin. Breathing well on room air. Denies pain. at bedside, many questions asked - all answered in detail. Patient happy with plan of care. - Objective Vital Signs & Weight: Vital Signs (12 hours) Temp Pulse Resp BP Pulse Ox 08/03/19 08:41 89 08/03/19 07:08 97.6 F 70 15 165/80 H 94 L 08/03/19 04:55 97.6 F 64 16 125/67 96 08/02/19 23:49 97.7 F 60 16 112/74 93 L Weight Weight 233 lb I&O: 08/02/19 08/03/19 08/04/19 06:59 06:59 06:59 Intake Total 803 Balance 803 Result Diagrams: 08/03/19 05:11 08/03/19 05:11 Hospitalist ROS - Review of Systems All other systems reviewed; all pertinent +/- noted in HPI/Subj - Medication Medications: Active Medications Generic Name Dose Route Start Last Admin Trade Name Curtis PRN Reason Stop Dose Admin Duloxetine HCl 60 mg 08/03/19 09:00 08/03/19 08:42 Cymbalta PO 60 mg QAM RODRÍGUEZ Administration Heparin Sodium (Porcine) 0 units 08/02/19 17:45 08/03/19 06:07 Heparin 1,000 Units/Ml (10 Ml) SLOW IVP 3.17 unit ASDIR RODRÍGUEZ Administration Protocol - Exam General Appearance: NAD, awake alert Eye: PERRL, anicteric sclera Eye - other findings: EOMI ENT: no oropharyngeal lesions, moist mucosa Neck: supple, symmetric, no lymphadenopathy Heart: no murmur, no gallops, no rubs Heart - other findings: S1 and S2 present. Rate now in the 60's Respiratory: CTAB, no wheezes, no rales, no ronchi Gastrointestinal: soft, non-tender, non-distended, no hepatomegaly, no guarding , no rigidity Extremities: no cyanosis, no edema Skin: no lesions, no rashes Neurological: CN's grossly intact, no weakness, no focal deficits Musculoskeletal: generalized weakness Psychiatric: normal affect, A&O x 3 Hosp A/P (1) Paroxysmal A-fib Code(s): I48.0 - PAROXYSMAL ATRIAL FIBRILLATION Status: Acute (2) Shortness of breath Code(s): R06.02 - SHORTNESS OF BREATH Status: Acute (3) Palpitations Code(s): R00.2 - PALPITATIONS Status: Acute (4) Depression Code(s): F32.9 - MAJOR DEPRESSIVE DISORDER, SINGLE EPISODE, UNSPECIFIED Status : Acute - Plan Plan: Med/ tel Cardiology consult, recommendations appreciated IV amiodarone IV heparin Continue home meds as able No further episodes of RVR No chest pain, shortness of breath, palpitations Had recent Echo, preserved EF Replace electrolytes as needed GI and DVT PPX
--- NOTE | 2019-08-03 11:52 | PRG ---
DATE OF SERVICE: 08/03/2019 SUBJECTIVE: Ms. Bower was brought back to the hospital with atrial fibrillation with extremely rapid rate. She was at home. She had an event monitor on and the heart rates were getting over 200 beats per minute with rapid atrial fibrillation. She felt near syncopal with these, went to the emergency room in [place]. There, she has been started on intravenous amiodarone and is asymptomatic now and feels fine now. The patient did feel like she might even come close to passing out with these episodes, but did not pass out. She was recently in the hospital with palpitations and sent home with an event monitor as outlined above. She was on digoxin 0.125 mg a day and carvedilol 3.125 mg twice a day, but despite that, she had these very rapid atrial fibrillation episodes. PHYSICAL EXAMINATION: GENERAL: This is a pleasant 74-year-old woman, looks much younger than her stated age. LUNGS: Clear. CARDIAC: Normal S1, normal S2. ABDOMEN: Soft, nontender. EXTREMITIES: No clubbing. No cyanosis or edema. ASSESSMENT: 1. Atrial fibrillation with a rapid ventricular response, diagnosed by event monitor and also here in the hospital by EKG with near syncope. 2. History of hypertension. 3. The episodes appear relatively brief, but very rapid. PLAN: 1. She is on amiodarone. We will transition to oral amiodarone. 2. She is on intravenous heparin. We will transition this to subcutaneous Lovenox. 3. For now, we use amiodarone, this is extremely rapid rhythm. At some point, consideration for EP consultation could be given to see whether ablation may be an option, especially in view of the very rapid rhythm. Dr. Ramos to resume the patient's care tomorrow. Job ID: [id number]
[2019-08-03] MEDS ORDERED: Enoxaparin Sodium 100 MG/ML SYRINGE SC SCH (12:00)
[2019-08-03] MEDS: Amiodarone 200 MG TAB PO SCH ×2 (15:26→20:54)
[2019-08-03] MEDS ORDERED: Famotidine 20 MG TAB PO PRN (16:37)
[2019-08-03] MEDS ORDERED: Calcium Carbonate 500 MG ChewTAB PO PRN (16:38)
[2019-08-03] MEDS: Atorvastatin Calcium 40 MG TAB PO SCH (20:54)
[2019-08-03] MEDS: Enoxaparin Sodium 100 MG/ML SYRINGE SC SCH (20:55)
[2019-08-04] MEDS: Amiodarone 450 MG in Dextrose 5% in Water 250 ML IVPB SCH (01:46)
[2019-08-04 04:41] LABS: #Basophils 0.1 thou/uL (0.0-0.2); #Eosinphils 0.2 thou/uL (0.0-0.7); #Lymphocytes 1.7 thou/uL (1.20-3.40); #Monocytes 0.6 thou/uL (0.11-0.59); #Neutrophils 3.2 thou/uL (1.40-6.50); %Basophils 0.9 % (0.0-1.0); %Eosinophils 4.2 % (0.0-10.0); %Lymphocytes 29.3 % (21.0-51.0); %Monocytes 9.6 % (0.0-10.0); %Neutrophils 55.9 % (42.0-75.0); Hemoglobin 13.5 g/dL (12.0-16.0); Mean Corpuscular HGB CONC 33.7 g/dL (32.0-36.0); Mean Corpuscular Hemoglobin 32.7 pg (27.0-31.0); Mean Platelet Volume 7.8 fL (7.4-10.4); Platelet Count 244 thou/uL (130-400); Red Blood Cell (RBC) Count 4.14 mill/uL (4.20-5.40); White Blood Cell (WBC) Count 5.7 thou/uL (4.8-10.8)
[2019-08-04 05:02] LABS: Anion Gap 12 mmol/L (10-20); BUN (Urea Nitrogen) 9 mg/dL (9.8-20.1); Calc. Creatinine Clearance 99 mL/min (70-130); Calcium 9.8 mg/dL (7.8-10.44); Carbon Dioxide 27 mmol/L (23-31); Chloride 106 mmol/L (98-107); Estimated GFR-MDRD 65; Glucose 104 mg/dL (83-110); Potassium 3.7 mmol/L (3.5-5.1); Sodium 141 mmol/L (136-145)
[2019-08-04] MEDS: Amiodarone 200 MG TAB PO SCH ×3 (08:57→20:38)
[2019-08-04] MEDS: DULoxetine 60 MG CAP PO SCH (08:57)
[2019-08-04] MEDS: Enoxaparin Sodium 100 MG/ML SYRINGE SC SCH ×2 (08:58→20:35)
--- NOTE | 2019-08-04 12:02 | PDOC.HOSPP ---
- Subjective Subjective: Seen and examined. Sitting up in bed. Breathig well on room air. Has not felt any chest pain, palpitations, shortness of breath since admission. - Objective Vital Signs & Weight: Vital Signs (12 hours) Temp Pulse Resp BP Pulse Ox 08/04/19 11:27 97.8 F 76 18 122/76 96 08/04/19 07:04 97.6 F 61 16 114/65 96 08/04/19 03:54 97.3 F L 85 16 95 Weight Weight 233 lb I&O: 08/03/19 08/04/19 08/05/19 06:59 06:59 06:59 Intake Total 803 1312 Balance 803 1312 Result Diagrams: 08/04/19 04:01 08/04/19 04:01 Hospitalist ROS - Review of Systems All other systems reviewed; all pertinent +/- noted in HPI/Subj - Medication Medications: Active Medications Generic Name Dose Route Start Last Admin Trade Name Freq PRN Reason Stop Dose Admin Amiodarone HCl 400 mg 08/03/19 15:00 08/04/19 08:57 Cordarone PO 400 mg TID RODRÍGUEZ Administration Atorvastatin Calcium 40 mg 08/03/19 21:00 08/03/19 20:54 Lipitor PO 40 mg HS RODRÍGUEZ Administration Calcium Carbonate 1,000 mg 08/03/19 16:38 08/03/19 21:55 Tums PO 1,000 mg Q4H PRN Administration Heartburn or Indigestion Duloxetine HCl 60 mg 08/03/19 09:00 08/04/19 08:57 Cymbalta PO 60 mg QAM RODRÍGUEZ Administration Enoxaparin Sodium 100 mg 08/03/19 21:00 08/04/19 08:58 Lovenox SC Not Given 899,2099 RODRÍGUEZ Famotidine 20 mg 08/03/19 16:37 08/03/19 18:13 Pepcid PO 20 mg BIDPRN PRN Administration Indigestion Amiodarone HCl 450 mg/ 259 mls @ 10 mls/hr 08/03/19 11:15 08/04/19 01:46 Dextrose/Water IVPB 259 mls INF RODRÍGUEZ Administration Protocol Sodium Chloride 10 ml 08/03/19 21:00 08/04/19 08:58 Flush - Normal Saline IVF Not Given Q12HR RODRÍGUEZ - Exam General Appearance: NAD Eye: PERRL, anicteric sclera ENT: no oropharyngeal lesions, moist mucosa Neck: supple, symmetric Heart: no murmur, no gallops Heart - other findings: S1 and S2 regular rhythm this AM Respiratory: no wheezes, no rales, no ronchi, normal chest expansion Gastrointestinal: non-tender, non-distended, normal bowel sounds, no guarding, no rigidity Extremities: no clubbing, no edema Skin: no lesions, no rashes Neurological: no weakness Musculoskeletal: normal strength, no muscle wasting Psychiatric: normal affect, A&O x 3 Hosp A/P (1) Paroxysmal A-fib Code(s): I48.0 - PAROXYSMAL ATRIAL FIBRILLATION Status: Acute (2) Shortness of breath Code(s): R06.02 - SHORTNESS OF BREATH Status: Acute (3) Palpitations Code(s): R00.2 - PALPITATIONS Status: Acute (4) Depression Code(s): F32.9 - MAJOR DEPRESSIVE DISORDER, SINGLE EPISODE, UNSPECIFIED Status : Acute - Plan Plan: Med/ tel Cardiology consult, recommendations appreciated Transitioning to PO amiodarone from IV Lovenox full dose Continue home meds as able No further episodes of RVR No chest pain, shortness of breath, palpitations Had recent Echo, preserved EF Replace electrolytes as needed GI and DVT PPX
--- NOTE | 2019-08-04 19:39 | PRG ---
DATE OF SERVICE: 08/04/2019 SUBJECTIVE: Ms. Bower is doing well. Her rhythm has become much more stable on IV amiodarone therapy. She is currently on 400 mg of Cordarone t.i.d. in addition to IV amiodarone. No current symptoms. OBJECTIVE: VITAL SIGNS: Blood pressure 120/75, pulse 66, temperature 97.8. LUNGS: Clear to auscultation. HEART: Regular rate and rhythm. ABDOMEN: Soft, nontender, and nondistended. EXTREMITIES: No edema. IMPRESSION: Paroxysmal atrial fibrillation. RECOMMENDATIONS: Ms. Bower appears to be much more stable rhythm naik. Continue amiodarone therapy IV and n.p.o. We will add low-dose beta bruno therapy. LVEF appears normal. TSH is 0.87. If stable in a.m., she would be okay for discharge. Job ID: [id number]
[2019-08-04] MEDS: Atorvastatin Calcium 40 MG TAB PO SCH (20:37)
[2019-08-04] MEDS: Metoprolol Tartrate 25 MG TAB PO SCH (20:38)
[2019-08-05] MEDS: Amiodarone 450 MG in Dextrose 5% in Water 250 ML IVPB SCH (04:54)
[2019-08-05 06:08] LABS: #Eosinphils 0.2 thou/uL (0.0-0.7); #Lymphocytes 1.5 thou/uL (1.20-3.40); #Monocytes 0.6 thou/uL (0.11-0.59); #Neutrophils 2.2 thou/uL (1.40-6.50); %Eosinophils 4.5 % (0.0-10.0); %Lymphocytes 32.7 % (21.0-51.0); %Monocytes 12.4 % (0.0-10.0); %Neutrophils 49.4 % (42.0-75.0); Hemoglobin 13.1 g/dL (12.0-16.0); Mean Corpuscular HGB CONC 33.8 g/dL (32.0-36.0); Mean Corpuscular Hemoglobin 32.5 pg (27.0-31.0); Mean Corpuscular Volume 96.1 fL (78.0-98.0); Platelet Count 234 thou/uL (130-400); Red Blood Cell (RBC) Count 4.03 mill/uL (4.20-5.40); White Blood Cell (WBC) Count 4.4 thou/uL (4.8-10.8)
[2019-08-05 06:27] LABS: Anion Gap 12 mmol/L (10-20); BUN (Urea Nitrogen) 10 mg/dL (9.8-20.1); Calc. Creatinine Clearance 110 mL/min (70-130); Calcium 9.7 mg/dL (7.8-10.44); Carbon Dioxide 25 mmol/L (23-31); Chloride 107 mmol/L (98-107); Estimated GFR-MDRD 74; Glucose 98 mg/dL (83-110); Potassium 3.8 mmol/L (3.5-5.1); Sodium 140 mmol/L (136-145)
[2019-08-05] MEDS: Amiodarone 200 MG TAB PO SCH (08:39)
[2019-08-05] MEDS: DULoxetine 60 MG CAP PO SCH (08:39)
[2019-08-05] MEDS: Metoprolol Tartrate 25 MG TAB PO SCH (09:21)
[2019-08-05] MEDS: Enoxaparin Sodium 100 MG/ML SYRINGE SC SCH (09:23)
--- NOTE | 2019-08-05 14:20 | PRG ---
DATE OF SERVICE: 08/05/2019 SUBJECTIVE: Ms. Bower is doing much better. No current complaints. Intermittent palpitations, but no syncope or presyncope present. She is currently on IV amiodarone. She did have heart rates in the 30s, but it was transient. Amiodarone has subsequently then been discontinued. OBJECTIVE: GENERAL: Patient is a pleasant female, who is in no acute distress. The patient appears their stated age. VITAL SIGNS: Blood pressure 109/55, pulse 50, and temperature 98.4. NEUROLOGIC: The patient is alert and oriented x3 with no focal neurologic deficits. HEENT: Sclerae without icterus. Mouth has moist mucous membranes with normal pallor. NECK: No JVD. Carotid upstroke brisk. No bruits bilaterally. LUNGS: Clear to auscultation with unlabored respirations. BACK: No scoliosis or kyphosis. CARDIAC: Regular rate and rhythm with normal S1 and S2. No S3 or S4 noted. No significant rubs, murmurs, thrills, or gallops noted throughout the precordium. PMI is not displaced. There is no parasternal heave. ABDOMEN: Soft, nontender, nondistended. No peritoneal signs present. No hepatosplenomegaly. No abnormal striae. EXTREMITIES: 2+ femoral and 2+ dorsalis pedis pulses. No cyanosis, clubbing, or edema. SKIN: No gross abnormalities. PERTINENT LABORATORY DATA: Hemoglobin 13.1 and creatinine 0.77. IMPRESSION: 1. Atrial fibrillation. 2. Supraventricular tachycardia. RECOMMENDATIONS: Ms. Bower is doing much better. Her rhythm appears to be more stable. We will decrease Cordarone to 400 mg p.o. q.a.m. Discontinue enoxaparin and add Eliquis. If rhythm is stable, would be okay from my standpoint to discharge home this afternoon with close outpatient followup. Job ID: [id number]
[2019-08-05 16:10] VITALS: BP 132/82; TEMP 98.2
[2019-08-05] MEDS ORDERED: Apixaban 5 MG TAB PO SCH (21:00)
[2019-08-06] MEDS ORDERED: Amiodarone 200 MG TAB PO SCH (09:00)
--- NOTE | 2019-08-06 13:39 | DIS ---
DATE OF ADMISSION: 08/05/2019 DATE OF DISCHARGE: 08/05/2019 REASON FOR HOSPITALIZATION: Atrial fibrillation with rapid ventricular response. SIGNIFICANT FINDINGS: The patient is found to be in atrial fibrillation with RVR. PROCEDURES PERFORMED/TREATMENTS RENDERED: The patient was admitted to medical unit with telemetry, evaluated by Cardiology, had daily adjustments in medications with good resolution of symptoms. CONDITION ON DISCHARGE: Stable. SPECIFIC INSTRUCTIONS FOR THE PATIENT/FAMILY: 1. The patient is recommended to take all medications as directed. 2. The patient is recommended to follow up with Cardiology at her appointment this Sunday. 3. The patient is recommended to follow up with primary care physician in the next 5 to 7 days. 4. The patient is recommended to return to acute care hospital immediately if signs or symptoms return, worsen, or any other new symptoms occur. DISCHARGE MEDICATIONS: Please see full list for full details. 1. Omeprazole 40 mg one tablet p.o. daily. 2. Atorvastatin 40 mg one tablet p.o. daily. 3. Duloxetine 60 mg one tablet p.o. daily. 4. Metoprolol succinate XL 25 mg one tablet p.o. daily. 5. Eliquis 5 mg one tablet p.o. b.i.d. 6. Amiodarone 400 mg one tablet p.o. daily. HOSPITAL COURSE: Ms. Bower is a very pleasant 74-year-old white female with past medical history of recently diagnosed rhythm disturbance, who was placed on Holter monitor in the outpatient setting. The patient with abnormal rhythm and was sent in to acute care hospital for further evaluation. The patient was found to be in atrial fibrillation with rapid ventricular response and was transferred from [place] for higher level of care. The patient was seen and evaluated by Cardiology, please see full consultation and progress notes for details. Medications were adjusted appropriately by back shoe cutter. The patient was sent home on medications that were selected by Cardiology after she was deemed safe for discharge on 08/05/2019. Patient recommended to follow up with Cardiology at her appointment this Sunday. The patient was recommended to take all medications as directed. The patient was recommended to follow up with primary care physician in the next 5 to 7 days. The patient was recommended to return to acute care hospital immediately if signs or symptoms return, worsen, or any other new symptoms occur. Job ID: [id number]
== END 2019-08-05 18:52 | disposition home or self-care (01) | DRG 310 ==
LOC: ERS 15:44 → 2SW 17:59 → OBSVTOIN 08-05 08:54
PROVIDERS: ADMIT Internal Medicine; ATTEND Internal Medicine
DX: I48.0 Paroxysmal atrial fibrillation (principal); I47.1 Supraventricular tachycardia; I10 Essential (primary) hypertension; F32.9 Major depressive disorder, single episode, unspecified; E78.5 Hyperlipidemia, unspecified; Z79.899 Other long term (current) drug therapy
CPT/HCPCS: 36415; 80048; 80076; 83735; 84443; 84484; 85025; 85027; 85730; 93005; J0282; J1644; J1650; J7070